=== PATIENT | female | born 1985 | race Caucasian/White ===

== ENCOUNTER 2017-03-16 21:39 | Emergency (ER) | payer MEDICAID ==
[~2017-03-16] VITALS: Ht 172.7 cm; Wt 88.5 kg
--- NOTE | 2017-03-16 21:47 | NUR ---
pt ambulatory to er bed . c/o headache w/ dizziness. recently diagnosed w/ vertigo. taking meclizine w/ no relief. gowned and placed on monitor. stable vitals. awaiting md funez.
--- NOTE | 2017-03-16 22:39 | NUR ---
mary charcoal kiln burner at bedside for eval.
[2017-03-16] MEDS ORDERED: DIAZEPAM 5 MG/ML 2 ML DISP.SYRIN IV ONE (23:00)
[2017-03-16] MEDS ORDERED: METOCLOPRAMIDE HCL 10 MG/2 ML VIAL IV ONE (23:00)
[2017-03-16] MEDS ORDERED: diphenhydrAMINE HCL 50 MG/ML VIAL IV ONE (23:00)
[2017-03-16] MEDS ORDERED: IV NS 0.9% 1,000 ML BAG IV ONE (23:00)
--- NOTE | 2017-03-16 23:13 | NUR ---
iv line started blood drawn and sent to lab.
[2017-03-16] MEDS ORDERED: diphenhydrAMINE HCL 50 MG/ML VIAL ONE (23:17)
[2017-03-16] MEDS ORDERED: DIAZEPAM 5 MG/ML 2 ML DISP.SYRIN ONE (23:18)
[2017-03-16] MEDS ORDERED: METOCLOPRAMIDE HCL 10 MG/2 ML VIAL ONE (23:18)
[2017-03-16 23:32] LABS: BASOPHILS % (AUTO) 0.6 % (0.0-2.0); EOSINOPHILS # (AUTO) 0.1 /CMM (0.0-0.7); EOSINOPHILS % (AUTO) 1.1 % (0.0-6.0); HEMATOCRIT 39 % (33-45); LYMPHOCYTES % (AUTO) 37.1 % (20.0-44.0); MEAN CORPUSCULAR HEMOGLOBIN 30 PG (26.0-33.0); MEAN CORPUSCULAR HGB CONC 34 g/dl (31.0-36.0); MEAN CORPUSCULAR VOLUME 89 fL (82-100); MONOCYTES # (AUTO) 0.9 /CMM (0.1-1.30); MONOCYTES % (AUTO) 10.6 % (2.0-12.0); NEUTROPHILS # (AUTO) 4.1 /CMM (1.8-8.9); NEUTROPHILS % (AUTO) 50.6 % (43.0-81.0); PLATELET COUNT (AUTO) 223 /CMM (150-450); RED BLOOD CELL COUNT(AUTO) 4.39 MIL/uL (4.0-5.2); WHITE BLOOD COUNT (AUTO) 8.1 K/uL (4.3-11.0)
[2017-03-16 23:42] LABS: CALCIUM, SERUM 8.4 mg/dL (8.5-10.1); CREATININE 0.8 mg/dL (0.6-1.3); POTASSIUM 3.6 mmol/L (3.5-5.1)
--- NOTE | 2017-03-16 23:50 | NUR ---
pt to radiology for head ct scan via [facility].
[2017-03-17] MEDS ORDERED: MORPHINE SULFATE INJ 4 MG/ML DISP.SYRIN ONE
[2017-03-17] MEDS ORDERED: MORPHINE SULFATE INJ 2 MG/ML DISP.SYRIN IV ONE
--- NOTE | 2017-03-17 00:50 | NUR ---
suman leiva at bedside speaking to pt regarding results.
--- NOTE | 2017-03-17 00:56 | NUR ---
IV removed. Catheter intact and site benign. Pressure and 4x4 applied to site. No bleeding noted. Patient discharged to home in stable condition. Written and verbal after care instructions given. Patient verbalizes understanding of instruction. ambulatory with a steady gait. instructed not to drive. pt verbalize understanding.
[2017-03-17 00:57] VITALS: BP 110/58
== END 2017-03-17 00:58 | disposition home or self-care (01) ==
LOC: ER 21:46
DX: R42 Dizziness and giddiness (principal); F32.9 Major depressive disorder, single episode, unspecified
CPT/HCPCS: 36415; 70450; 80048; 84703; 85025; 96361; 96374; 96375; 99285; A4606; J1200; J2270; J2765; J3360; J7030; Z7610

== ENCOUNTER 2017-04-26 23:15 | Emergency (ER) | payer MEDICAID ==
[~2017-04-26] VITALS: Ht 172.7 cm; Wt 87.1 kg
--- NOTE | 2017-04-26 23:30 | NUR ---
TO BED 6 A 32 YO FEMALE BIBSELF W C/O "MY BRAIN FEELS TOO BIG FOR MY HEAD;" HEADACHE AND DIZZINESS. PATIENT IS AAOX3, AMBULATORY. NAD NOTED. VSS. NONDIAHORETIC. COMFORT AND SAFETY MEASURE IN PLACE. AWAITING FOR ER MD VELAZQUEZ.
[2017-04-27] MEDS ORDERED: METOCLOPRAMIDE HCL 10 MG/2 ML VIAL IV ONE
[2017-04-27] MEDS ORDERED: IV NS 0.9% 1,000 ML BAG IV ONE
[2017-04-27] MEDS ORDERED: diphenhydrAMINE HCL 50 MG/ML VIAL IV ONE
[2017-04-27] MEDS ORDERED: diphenhydrAMINE HCL 50 MG/ML VIAL ONE ×4 (00:16)
[2017-04-27] MEDS ORDERED: METOCLOPRAMIDE HCL 10 MG/2 ML VIAL ONE ×4 (00:17)
--- NOTE | 2017-04-27 00:33 | NUR ---
MEDICATED PATIENT ORDERED BY JEMMA HERNÁNDEZ.
--- NOTE | 2017-04-27 01:05 | NUR ---
Patient reports relief from headache and dizziness. IV removed. Catheter intact and site benign. Pressure and 4x4 applied to site. No bleeding noted. Patient discharged to home in stable condition. Written and verbal after care instructions given. Patient verbalizes understanding of instruction. Patient is ambulatory with steady gait, accompanied by friend. no further complaints.
[2017-04-27 01:06] VITALS: BP 120/78
== END 2017-04-27 01:06 | disposition home or self-care (01) ==
LOC: ER 23:24
DX: R51 Headache (principal); F32.9 Major depressive disorder, single episode, unspecified
CPT/HCPCS: 96361; 96374; 96375; 99285; A4606; J1200 ×4; J2765 ×4; J7030 ×2; Z7610

== ENCOUNTER 2017-05-08 15:28 | Emergency (ER) | payer MEDICAID ==
[~2017-05-08] VITALS: Ht 172.7 cm; Wt 87.1 kg
--- NOTE | 2017-05-08 15:30 | NUR ---
C/O HEADACHE, NAUSEA, DIZZY X 3 MOS MANAGER DISH DX W VERTIGO, TOOK MECLIZINE NOT EFFECTIVE, NAD NOTED, VSS, WAITING FOR MD VELAZQUEZ.
[2017-05-08 17:27] VITALS: BP 111/68
--- NOTE | 2017-05-08 17:27 | NUR ---
Patient discharged to home in stable condition. Written and verbal after care instructions given. Patient verbalizes understanding of instruction.
== END 2017-05-08 17:28 | disposition home or self-care (01) ==
LOC: ER 15:31
DX: R51 Headache (principal); F32.9 Major depressive disorder, single episode, unspecified; J45.909 Unspecified asthma, uncomplicated; Z88.1 Allergy status to other antibiotic agents
CPT/HCPCS: 70450-TC; A4606; J1885; Z7610

== ENCOUNTER 2018-01-24 14:42 | Emergency (ER) | payer MEDICAID, OTHER ==
[~2018-01-24] VITALS: Ht 172.7 cm; Wt 94.8 kg
--- NOTE | 2018-01-24 14:45 | NUR ---
Presents to ER c/o migraine and abdominal cramps. A/O x 3, breathing even and unlabored. no sob, nad, vitals stable. Safety and comfort measures in place. awaiting md orders.
[2018-01-24] MEDS ORDERED: ONDANSETRON HCL/PF 4 MG/2 ML VIAL ONE (15:10)
[2018-01-24] MEDS ORDERED: KETOROLAC TROMETHAMINE 15 MG/ML VIAL ONE (15:10)
[2018-01-24] MEDS ORDERED: LORAZEPAM INJ 2 MG/ML VIAL ONE (15:11)
--- NOTE | 2018-01-24 15:20 | NUR ---
new iv started on rac, 20g.
--- NOTE | 2018-01-24 15:26 | NUR ---
medicated patient per md orders.
[2018-01-24] MEDS ORDERED: IV NS 0.9% 1,000 ML BAG IV ONE (15:30)
[2018-01-24] MEDS ORDERED: KETOROLAC TROMETHAMINE INJ 30 MG/ML VIAL IV ONE (15:30)
[2018-01-24] MEDS ORDERED: LORAZEPAM INJ 2 MG/ML VIAL IV ONE (15:30)
[2018-01-24] MEDS ORDERED: ONDANSETRON HCL/PF 4 MG/2 ML VIAL IVP ONE (15:30)
[2018-01-24] MEDS ORDERED: MORPHINE SULFATE INJ 4 MG/ML DISP.SYRIN IV ONE (16:30)
[2018-01-24] MEDS ORDERED: MORPHINE SULFATE INJ 4 MG/ML DISP.SYRIN ONE (16:43)
[2018-01-24 17:40] VITALS: BP 121/62
--- NOTE | 2018-01-24 17:42 | NUR ---
IV removed. Catheter intact and site benign. Pressure and 4x4 applied to site. No bleeding noted. Patient discharged to home in stable condition. Written and verbal after care instructions given. Patient verbalizes understanding of instruction.
== END 2018-01-24 17:42 | disposition home or self-care (01) ==
LOC: ER 14:43
DX: G43.909 Migraine, unspecified, not intractable, without status migrainosus (principal); N94.6 Dysmenorrhea, unspecified; F41.9 Anxiety disorder, unspecified; Z76.0 Encounter for issue of repeat prescription; F32.9 Major depressive disorder, single episode, unspecified; J45.909 Unspecified asthma, uncomplicated; Z88.8 Allergy status to other drugs, medicaments and biological substances
CPT/HCPCS: 96361; 96374; 96375; 99284; A4606; J1885; J2060; J2270; J2405; J7030; Z7610

== ENCOUNTER 2018-10-06 02:59 | Emergency (ER) | payer MEDICAID ==
[~2018-10-06] VITALS: Ht 172.7 cm; Wt 97.5 kg
--- NOTE | 2018-10-06 03:05 | NUR ---
PT CAME TO EMERGENCY DEPT. BECAUSE SHE WOKE UP AT 115 AM AND WAS NOT ABLE TO GET UP AND FELT WEAKNESS, AND A HEADACHE AT THE BASE OF THE SKULL. PT IS AXO4. RESPIRATIONS ARE EVEN AND UNLABORED. PT PUT ON THE MONITOR AND PULSE OX. PENDING EVAL FROM ER .
--- NOTE | 2018-10-06 03:45 | NUR ---
LABS SENT, URINE COLLECTED AND SENT TO LAB.
[2018-10-06] MEDS ORDERED: IV NS 0.9% 1,000 ML BAG IV ONE (04:00)
[2018-10-06 04:09] LABS: BILIRUBIN,URINE NEGATIVE (NEGATIVE); BLOOD, URINE NEGATIVE Ery/uL (NEGATIVE); COLOR,URINE YELLOW (YELLOW); KETONES,URINE NEGATIVE (NEGATIVE); LEUKOCYTE ESTERASE ,URINE NEGATIVE (NEGATIVE); NITRITE, URINE NEGATIVE (NEGATIVE); PH,URINE 7.5 (5.0-8.0); PROTEIN,URINE NEGATIVE (NEGATIVE); UGLUCOSE NEGATIVE (NEGATIVE); UROBILINOGEN,URINE 0.2 EU/dL (0.2)
[2018-10-06 04:13] LABS: BASOPHILS # (AUTO) 0.1 /CMM (0.0-0.2); BASOPHILS % (AUTO) 0.8 % (0.0-2.0); EOSINOPHILS % (AUTO) 1.4 % (0.0-6.0); HEMATOCRIT 40 % (33-45); HEMOGLOBIN 13.3 g/dL (11.5-14.8); LYMPHOCYTES # (AUTO) 2.8 /CMM (0.8-4.8); LYMPHOCYTES % (AUTO) 32.3 % (20.0-44.0); MEAN CORPUSCULAR HGB CONC 33 g/dl (31.0-36.0); MEAN CORPUSCULAR VOLUME 90 fL (82-100); MONOCYTES # (AUTO) 0.7 /CMM (0.1-1.30); MONOCYTES % (AUTO) 7.9 % (2.0-12.0); NEUTROPHILS # (AUTO) 4.9 /CMM (1.8-8.9); NEUTROPHILS % (AUTO) 57.6 % (43.0-81.0); PLATELET COUNT (AUTO) 222 /CMM (150-450); RED BLOOD CELL COUNT(AUTO) 4.47 MIL/uL (4.0-5.2); WHITE BLOOD COUNT (AUTO) 8.5 K/uL (4.3-11.0)
[2018-10-06 04:16] LABS: APPEARANCE,URINE TURBID (CLEAR)
[2018-10-06 04:18] LABS: RBC,URINE NONE SEEN /HPF (0-2); WBC,URINE 0-2 /HPF (0-3)
[2018-10-06 04:19] LABS: BACTERIA,URINE Few /HPF (None Seen); SQUAMOUS EPITHELIAL CELL,UR Rare /HPF (None Seen); URINE AMORPHOUS PHOSPHATES Many /HPF (None Seen)
[2018-10-06 04:20] LABS: CALCIUM, SERUM 8.6 mg/dL (8.5-10.1); CREATININE 0.8 mg/dL (0.6-1.3); POTASSIUM 3.8 mmol/L (3.5-5.1)
[2018-10-06 04:26] LABS: ALBUMIN 3.5 g/dL (3.4-5.0); BILIRUBIN,TOTAL 0.2 mg/dL (0.2-1.0); TOTAL PROTEIN, SERUM 7.3 g/dL (6.4-8.2)
--- NOTE | 2018-10-06 04:30 | NUR ---
PT IN BED, NAD NOTED. WILL CONTINUE TO MONITOR.
[2018-10-06] MEDS ORDERED: METOCLOPRAMIDE HCL 10 MG/2 ML VIAL IV ONE (05:30)
[2018-10-06] MEDS ORDERED: KETOROLAC TROMETHAMINE INJ 30 MG/ML VIAL IV ONE (05:30)
[2018-10-06] MEDS ORDERED: KETOROLAC TROMETHAMINE INJ 30 MG/ML VIAL ONE (05:33)
[2018-10-06] MEDS ORDERED: METOCLOPRAMIDE HCL 10 MG/2 ML VIAL ONE (05:33)
--- NOTE | 2018-10-06 06:59 | NUR ---
Patient discharged to home in stable condition. Written and verbal after care instructions given. Patient verbalizes understanding of instruction. IV removed. Catheter intact and site benign. Pressure and 4x4 applied to site. No bleeding noted.
[2018-10-06 07:00] VITALS: BP 107/59
== END 2018-10-06 07:00 | disposition home or self-care (01) ==
LOC: ER 03:03
DX: G43.909 Migraine, unspecified, not intractable, without status migrainosus (principal); R42 Dizziness and giddiness; J45.909 Unspecified asthma, uncomplicated; F32.9 Major depressive disorder, single episode, unspecified; Z88.1 Allergy status to other antibiotic agents
CPT/HCPCS: 36415; 70450; 80048; 80076; 81001; 84703; 85025; 85730; 96361; 96374; 96375; 99284; A4606; J1885; J2765; J7030; 81000-TC

== ENCOUNTER 2020-05-03 19:13 | Emergency (ER) | payer MEDICAID ==
[~2020-05-03] VITALS: Ht 172.7 cm; Wt 90.7 kg
[2020-05-03] MEDS ORDERED: KETOROLAC TROMETHAMINE INJ 30 MG/ML VIAL ONE (19:51)
[2020-05-03] MEDS ORDERED: METOCLOPRAMIDE HCL 10 MG/2 ML VIAL ONE (19:51)
[2020-05-03] MEDS ORDERED: FAMOTIDINE/PF INJ 20 MG/2 ML VIAL IV ONE ×2 (19:54→20:00)
[2020-05-03] MEDS ORDERED: IV NS 0.9% 1,000 ML BAG IV ONE (20:00)
[2020-05-03] MEDS ORDERED: KETOROLAC TROMETHAMINE INJ 30 MG/ML VIAL IV ONE (20:00)
[2020-05-03] MEDS ORDERED: METOCLOPRAMIDE HCL 10 MG/2 ML VIAL IV ONE (20:00)
--- NOTE | 2020-05-03 20:00 | NUR ---
BLOOD AND URINE COLLECTED AND SENT TO LAB
[2020-05-03 20:29] LABS: BASOPHILS % (AUTO) 0.9 % (0.0-2.0); EOSINOPHILS % (AUTO) 1.2 % (0.0-6.0); HEMATOCRIT 44 % (33-45); HEMOGLOBIN 14.6 g/dL (11.5-14.8); MEAN CORPUSCULAR HGB CONC 34 g/dl (31.0-36.0); MEAN CORPUSCULAR VOLUME 92 fL (82-100); MONOCYTES % (AUTO) 7.8 % (2.0-12.0); NEUTROPHILS % (AUTO) 55.1 % (43.0-81.0); PLATELET COUNT (AUTO) 247 /CMM (150-450); RED BLOOD CELL COUNT(AUTO) 4.75 MIL/uL (4.0-5.2); WHITE BLOOD COUNT (AUTO) 5.7 K/uL (4.3-11.0)
[2020-05-03 20:30] LABS: BASOPHILS # (AUTO) 0.1 /CMM (0.0-0.2); MONOCYTES # (AUTO) 0.4 /CMM (0.1-1.30); NEUTROPHILS # (AUTO) 3.1 /CMM (1.8-8.9)
[2020-05-03 20:46] LABS: CALCIUM, SERUM 8.9 mg/dL (8.5-10.1); CREATININE 0.7 mg/dL (0.6-1.3); POTASSIUM 3.9 mmol/L (3.5-5.1)
[2020-05-03 20:47] LABS: APPEARANCE,URINE Clear (CLEAR); BILIRUBIN,URINE SMALL (NEGATIVE); BLOOD, URINE Moderate Ery/uL (NEGATIVE); COLOR,URINE Yellow (YELLOW); KETONES,URINE Negative (NEGATIVE); LEUKOCYTE ESTERASE ,URINE Negative (NEGATIVE); NITRITE, URINE Negative (NEGATIVE); PROTEIN,URINE Negative (NEGATIVE); UGLUCOSE Negative (NEGATIVE); UROBILINOGEN,URINE 0.2 EU/dL (0.2)
[2020-05-03 21:03] LABS: ALBUMIN 3.5 g/dL (3.4-5.0); BILIRUBIN,DIRECT 0.1 mg/dL (0.0-0.2); BILIRUBIN,TOTAL 0.3 mg/dL (0.2-1.0); TOTAL PROTEIN, SERUM 7.8 g/dL (6.4-8.2)
[2020-05-03 21:11] LABS: BACTERIA,URINE 1+ /HPF (None Seen); SQUAMOUS EPITHELIAL CELL,UR Few /HPF (None Seen); WBC,URINE 0-2 /HPF (0-3)
[2020-05-03 21:48] VITALS: BP 117/67
== END 2020-05-03 21:48 | disposition home or self-care (01) ==
LOC: ER 19:14
DX: R10.13 Epigastric pain (principal); R11.2 Nausea with vomiting, unspecified; G43.909 Migraine, unspecified, not intractable, without status migrainosus; J45.909 Unspecified asthma, uncomplicated; Z88.1 Allergy status to other antibiotic agents
CPT/HCPCS: 36415; 76705; 80048; 80076; 81001; 83690; 84703; 85025; 96361; 96374; 96375; 99284; J1885; J2765; J3490; J7030; 81000-TC

== ENCOUNTER 2020-07-05 13:25 | Emergency (ER) | payer MEDICAID ==
[~2020-07-05] VITALS: Ht 172.7 cm; Wt 83.9 kg
--- NOTE | 2020-07-05 13:30 | NUR ---
, from home, c/o abd pain since yesterday and noted black tarry stool, 8/10 pain scale, noted pale, to ER bed 10, hooked to BP cuff and POX, changed to hosp gown, warm blanket provided, patient AAO x 4, breathing even and unlabored, NAD noted. awaiting MD funez.
--- NOTE | 2020-07-05 14:20 | NUR ---
Dr Louise at bedside
[2020-07-05] MEDS ORDERED: ONDANSETRON HCL/PF 4 MG/2 ML VIAL IVP ONE (14:30)
[2020-07-05] MEDS ORDERED: PANTOPRAZOLE 40 MG VIAL IV ONE (14:30)
[2020-07-05] MEDS ORDERED: ONDANSETRON HCL/PF 4 MG/2 ML VIAL ONE (14:30)
[2020-07-05] MEDS ORDERED: MORPHINE SULFATE INJ 2 MG/ML DISP.SYRIN IV ONE (14:30)
[2020-07-05] MEDS ORDERED: PANTOPRAZOLE 40 MG VIAL ONE (14:30)
[2020-07-05] MEDS ORDERED: MORPHINE SULFATE INJ 4 MG/ML DISP.SYRIN ONE (14:30)
[2020-07-05] MEDS ORDERED: IV NS 0.9% 1,000 ML BAG IV ONE (14:30)
--- NOTE | 2020-07-05 14:30 | NUR ---
CALLED [facility] [phone] MEDICAL RECORDS [facility]. NO RECORDS FOUND.
[2020-07-05 14:49] LABS: BASOPHILS % (AUTO) 0.6 % (0.0-2.0); EOSINOPHILS % (AUTO) 0.9 % (0.0-6.0); HEMATOCRIT 40 % (33-45); HEMOGLOBIN 13.3 g/dL (11.5-14.8); LYMPHOCYTES # (AUTO) 1.7 /CMM (0.8-4.8); MEAN CORPUSCULAR HGB CONC 34 g/dl (31.0-36.0); MEAN CORPUSCULAR VOLUME 91 fL (82-100); MONOCYTES # (AUTO) 0.3 /CMM (0.1-1.30); MONOCYTES % (AUTO) 5.1 % (2.0-12.0); NEUTROPHILS # (AUTO) 4.3 /CMM (1.8-8.9); NEUTROPHILS % (AUTO) 67.4 % (43.0-81.0); PLATELET COUNT (AUTO) 226 /CMM (150-450); RED BLOOD CELL COUNT(AUTO) 4.38 MIL/uL (4.0-5.2); WHITE BLOOD COUNT (AUTO) 6.4 K/uL (4.3-11.0)
[2020-07-05 14:53] LABS: BILIRUBIN,URINE NEGATIVE (NEGATIVE); BLOOD, URINE TRACE-INTA Ery/uL (NEGATIVE); COLOR,URINE YELLOW (YELLOW); LEUKOCYTE ESTERASE ,URINE NEGATIVE (NEGATIVE); NITRITE, URINE NEGATIVE (NEGATIVE); PROTEIN,URINE NEGATIVE (NEGATIVE); UGLUCOSE NEGATIVE (NEGATIVE); UROBILINOGEN,URINE 0.2 EU/dL (0.2)
[2020-07-05 15:00] LABS: CALCIUM, SERUM 8.7 mg/dL (8.5-10.1); CREATININE 0.8 mg/dL (0.6-1.3); POTASSIUM 3.7 mmol/L (3.5-5.1)
[2020-07-05 15:06] LABS: BACTERIA,URINE None seen /HPF (None Seen); SQUAMOUS EPITHELIAL CELL,UR 0-2 /HPF (None Seen); URINE AMORPHOUS URATE Moderate /HPF (None Seen); WBC,URINE 0-2 /HPF (0-3)
[2020-07-05 15:06] LABS: ALBUMIN 3.5 g/dL (3.4-5.0); BILIRUBIN,DIRECT 0.1 mg/dL (0.0-0.2); BILIRUBIN,TOTAL 0.3 mg/dL (0.2-1.0); TOTAL PROTEIN, SERUM 7.4 g/dL (6.4-8.2)
[2020-07-05] MEDS ORDERED: IOHEXOL-300 100 ML VIAL IV ONE (15:07)
[2020-07-05] MEDS ORDERED: IV NS 0.9% 250 ML IV ONE (15:08)
--- NOTE | 2020-07-05 16:40 | NUR ---
IV removed. Catheter intact and site benign. Pressure and 4x4 applied to site. No bleeding noted.Patient discharged to home in stable condition. Written and verbal after care instructions given. Patient verbalizes understanding of instruction.
[2020-07-05 16:41] VITALS: BP 106/59
== END 2020-07-05 16:42 | disposition home or self-care (01) ==
LOC: ER 13:28
DX: R10.13 Epigastric pain (principal); R10.32 Left lower quadrant pain; Q43.3 Congenital malformations of intestinal fixation; G43.909 Migraine, unspecified, not intractable, without status migrainosus; J45.909 Unspecified asthma, uncomplicated; F32.9 Major depressive disorder, single episode, unspecified; Z88.8 Allergy status to other drugs, medicaments and biological substances
CPT/HCPCS: 36415; 71045; 74177; 80048; 80076; 81001; 83690; 84703; 85025; 96361; 96374; 96375; 99285; C9113; J2270; J2405; J7030; J7050; Q9967